=== PATIENT | female | born 1940 | race Caucasian/White ===

== ENCOUNTER → 2017-03-20 | Outpatient (CLI) | payer MEDICARE, OTHER ==
--- NOTE | 2017-03-20 12:19 | RADIOLOGY REPORT (SQ) ---
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 TECHNIQUE: Sagittal and Axial imaging includes T1, T2, STIR and gradient echo sequences. Coronal T2/ HASTE imaging. LIMITATIONS: Motion artifact FINDINGS: VISUALIZED UPPER ABDOMEN: Motion artifact on the coronal images. Multiple hepatic cysts a re present SEGMENTATION: No transitional anatomy. The lowest well-developed disc space is labeled L5-S1. ALIGNMENT: Mild retrolisthesis of L1 over L2. Mild grade 1 anterolisthesis of L3 over L4, and L4 ove r L5. VERTEBRAE: Intact. BONE MARROW: Mild marrow edema in the anterior inferior corner of L4 DISC SIGNAL: Diffuse decreased T2 weighted intervertebral disc signal. Disc space loss of height at L1-2 POSTERIOR ELEMENTS: Generally intact. No pars defect evident. HARDWARE: None in the spine. CORD AND CONUS: Normal in size and signal intensity. Conus at the L1-2 level. SOFT TISSUES: No aortic aneurysm seen. No bulky retroperitoneal adenopathy or mass. No paraspinal mas s or fluid. T11-12: Unremarkable T12-L1: Unremarkable L1-L2: Disc space loss of height with slight retrolisthesis of L1 over L2. Broad diffuse posterior d isc bulging and moderate bilateral facet and ligament hypertrophy. Borderline central canal narrowin g. Moderate right, mild left foraminal narrowing. L2-L3: Minimal diffuse posterior disc bulging, moderate bilateral facet and ligament hypertrophy. Jori rderline central canal narrowing. Mild inferior right foraminal narrowing, mild to moderate left for aminal narrowing without definite exiting L2 nerve root impingement. L3-L4: Grade 1 anterolisthesis of L3 over L4, broad diffuse posterior disc bulging and bulky bilatera l facet and ligament hypertrophy cause moderate to high-grade central canal stenosis best shown on ax ial T2 images 16-18. There is partial effacement of the CSF around the lumbar nerve roots. Mild garcía ateral inferior foraminal narrowing without exiting L3 nerve root impingement. L4-L5: Grade 1 anterolisthesis of L4 over L5, broad diffuse posterior disc bulge and bony spurring, m oderate bilateral facet and ligament hypertrophy OS moderate to high-grade central canal stenosis wit h partial effacement of the CSF around the lumbar nerve roots best shown on axial T2 image 23. There is moderate bilateral foraminal narrowing left greater than right without definite exiting L4 nerve root impingement L5-S1: Small central disc protrusion with slight inferior migration. This flattens the thecal sac be tween the takeoffs of the bilateral proximal S1 nerve roots without significant mass effect. This is best shown on axial T2 image 29. Borderline central canal narrowing. Mild bilateral foraminal narr owing without exiting L5 nerve root impingement SACRUM: Visualized upper sacrum intact. OTHER: No other significant findings. IMPRESSION: Multilevel degenerative changes as above TECHNICAL DOCUMENTATION: JOB ID: [id number] [employer] All Rights Reserved
== END ==
LOC: RAD 10:39
PROVIDERS: ATTEND Physician Assistant
DX: M54.16 Radiculopathy, lumbar region (principal); M48.061 Spinal stenosis, lumbar region without neurogenic claudication
CPT/HCPCS: 72148

== ENCOUNTER 2017-06-25 07:38 | Day surgery (SDC) | payer MEDICARE, OTHER ==
[~2017-06-25 07:38] MED LIST: CHONDR SU A NA/HYALUR INTRAOC KIT (SURGICARE) ONE; EPINEPHRINE INJ/PF 1 MG/1 ML AMPULE ONE; KETOROLAC TROMETHAMINE 0.45% 4 DROP/0.4 ML DROPERETTE OD PRN; LIDOCAINE 1% INJ-PF (10 MG/ML) 30 ML SDV ONE
[2017-06-25] MEDS: TROPICAMIDE 1% OPH SOLN 3 ML OD PRN ×3 (08:04→08:36)
[2017-06-25] MEDS: CYCLOPENTOLATE 0.2%/PHENYLEPHRINE 1% OPH SOLN 2 ML OD PRN ×3 (08:04→08:36)
[2017-06-25] MEDS: BESIFLOXACIN HCL 0.6% OPH SUSP 5 ML BOTTLE OD PRN ×4 (08:05→09:00)
[2017-06-25] MEDS: TETRACAINE HCL 0.5% OPH SOLN 2 ML OD PRN ×3 (08:06→08:46)
[2017-06-25] MEDS ORDERED: MIDAZOLAM 2 MG/2 ML INJ ONE (08:30)
--- NOTE | 2017-06-25 19:10 | [facility] OPERATIVE REPORT E ---
[facility] Operative Report NAME: YOLY LOPEZ AGE: 77Y DATE OF SURGERY: 06/25/2017 ROOM: PREOPERATIVE DIAGNOSIS: CATARACT, RIGHT EYE. POSTOPERATIVE DIAGNOSIS: CATARACT, RIGHT EYE. OPERATION: Cataract extraction with intraocular lens implant of the right eye. SURGEON: MARY PADGETT M.D. ANESTHESIA: Topical. TISSUE REMOVED OR ALTERED: PROCEDURE: After obtaining appropriate consent, the patient's right eye was prepped and draped in sterile fashion as well as the surgeon in a sterile manner and cataract surgery was started. First a paracentesis blade was used to make a small side-port incision. Viscoelastic was used to inflate the anterior chamber. Next a 2.4 mm incision was made with the paracentesis blade. A continuous capsulorrhexis incision was made using a cystotome and Utrata forceps. Following this hydrodissection was carried out to make the lens fully loose and mobile and it was rotated 90 degrees. Following this, a rqtacp-czr-qdepxbp technique was used to phacoemulsify the lens with a CDE of 6.8. The remaining cortex was removed with irrigation/aspiration. Provisc was instilled into the capsular bag to inflate the bag. A SN60WF, 21.5 diopter lens was placed. The remaining viscoelastic material was removed with irrigation/aspiration. Following this, a 10-0 nylon suture was used to close the incision and it was found to be watertight. Vigamox was instilled in the eye and a protective shield was placed over the eye. The patient returned to the postoperative recovery in stable condition. DICTATING PHYSICIAN: MARY PADGETT M.D. [id number] PHY#: [id number] ID: [id number] JOB#: [id number] ACCT: [id number] cc:MARY PADGETT M.D. >
--- NOTE | 2017-06-25 19:15 | [facility] DISCHARGE SUMMARY E ---
[facility] Discharge Summary NAME: YOLY LOPEZ AGE: 77Y ADMITTED: 06/25/2017 DISCHARGED: FINAL DIAGNOSIS: Cataract, right eye. HOSPITAL COURSE: This is a 77-year-old female who underwent cataract extraction of the right eye. She underwent surgery because she was having difficulty seeing words on the television. DISCHARGE INSTRUCTIONS: She should be on a regular diet. No bending at her waist, no heavy lifting. She should use Besivance, Ilevro and Durezol at 3:00 p.m. and 8:00 p.m. Sleep with a rigid shield. I will see her for a 1-day postoperative tomorrow. DICTATING PHYSICIAN: MARY PADGETT M.D. [id number] PHY#: [id number] ID: [id number] JOB#: [id number] ACCT: [id number] cc:MARY PADGETT M.D. >
== END 2017-06-25 09:52 | disposition home or self-care (01) ==
LOC: SC 07:38
PROVIDERS: ATTEND Internal Medicine
PROC: 08RJ3JZ Replacement of Right Lens with Synthetic Substitute, Percutaneous Approach (ICD-10-PCS; principal; 2017-06-25 09:00)
DX: H25.813 Combined forms of age-related cataract, bilateral (principal); H04.123 Dry eye syndrome of bilateral lacrimal glands; M19.90 Unspecified osteoarthritis, unspecified site; I34.1 Nonrheumatic mitral (valve) prolapse
CPT/HCPCS: 66984; V2632; J2250; J3490 ×2; A9270; J0171; 142

== ENCOUNTER 2017-07-16 10:29 | Day surgery (SDC) | payer MEDICARE, OTHER ==
[~2017-07-16 10:29] MED LIST changes: -KETOROLAC TROMETHAMINE 0.45% 4 DROP/0.4 ML DROPERETTE OD PRN; +KETOROLAC TROMETHAMINE 0.45% 4 DROP/0.4 ML DROPERETTE OS PRN
[2017-07-16] MEDS: TROPICAMIDE 1% OPH SOLN 3 ML OS PRN ×3 (10:49→11:07)
[2017-07-16] MEDS: CYCLOPENTOLATE 0.2%/PHENYLEPHRINE 1% OPH SOLN 2 ML OS PRN ×3 (10:49→11:07)
[2017-07-16] MEDS: TETRACAINE HCL 0.5% OPH SOLN 2 ML OS PRN ×3 (10:49→11:23)
[2017-07-16] MEDS: BESIFLOXACIN HCL 0.6% OPH SUSP 5 ML BOTTLE OS PRN ×3 (10:49→11:47)
[2017-07-16] MEDS ORDERED: ONDANSETRON HCL INJ/PF 4 MG/2 ML SDV ONE (11:06)
[2017-07-16] MEDS ORDERED: MIDAZOLAM 2 MG/2 ML INJ ONE ×2 (11:06→11:22)
[2017-07-16] MEDS ORDERED: FENTANYL CITRATE INJ/PF 100 MCG/2 ML AMPUL ONE (11:06)
--- NOTE | 2017-07-16 15:18 | [facility] OPERATIVE REPORT E ---
[facility] Operative Report NAME: YOLY LOPEZ AGE: 77Y DATE OF SURGERY: 07/16/2017 ROOM: PREOPERATIVE DIAGNOSIS: CATARACT, LEFT EYE. POSTOPERATIVE DIAGNOSIS: CATARACT, LEFT EYE. OPERATION: Cataract extraction with intraocular lens implant of the left eye. SURGEON: MARY PADGETT M.D. ANESTHESIA: Topical. TISSUE REMOVED OR ALTERED: PROCEDURE: After obtaining appropriate consent, the patient's left eye was prepped and draped in sterile fashion as well as the surgeon in a sterile manner and cataract surgery was started. First a paracentesis blade was used to make a small side-port incision. Viscoelastic was used to inflate the anterior chamber. Next a 2.4 mm incision was made with the paracentesis blade. A continuous capsulorrhexis incision was made using a cystotome and Utrata forceps. Following this hydrodissection was carried out to make the lens fully loose and mobile and it was rotated 90 degrees. Following this, a pltjps-qkd-dkiichq technique was used to phacoemulsify the lens with a CDE of 7.87. The remaining cortex was removed with irrigation/aspiration. Provisc was instilled into the capsular bag to inflate the bag. A SN60WF, 20.5 diopter lens was placed. The remaining viscoelastic material was removed with irrigation/aspiration. Following this, a 10-0 nylon suture was used to close the incision and it was found to be watertight. Vigamox was instilled in the eye and a protective shield was placed over the eye. The patient returned to the postoperative recovery in stable condition. DICTATING PHYSICIAN: MARY PADGETT M.D. [id number] PHY#: [id number] ID: [id number] JOB#: [id number] ACCT: [id number] cc:MARY PADGETT M.D. >
--- NOTE | 2017-07-16 15:19 | [facility] DISCHARGE SUMMARY E ---
[facility] Discharge Summary NAME: YOLY LOPEZ AGE: 77Y ADMITTED: 07/16/2017 DISCHARGED: 07/16/2017 FINAL DIAGNOSIS: Cataract, left eye. HOSPITAL COURSE: This is a 77-year-old female who underwent cataract extraction of the left eye. She underwent surgery because she was having trouble seeing words on the television. She should be on a regular diet. No bending at her waist, no heavy lifting. She should use Besivance, Ilevro and Durezol at 3:00 p.m. and 8:00 p.m. Sleep with a rigid shield. I will see her for a 1-day postoperative tomorrow. DICTATING PHYSICIAN: MARY PADGETT M.D. [id number] PHY#: [id number] ID: [id number] JOB#: [id number] ACCT: [id number] cc:MARY PADGETT M.D. >
== END 2017-07-16 12:33 | disposition home or self-care (01) ==
LOC: SC 10:29
PROVIDERS: ATTEND Internal Medicine
DX: H25.812 Combined forms of age-related cataract, left eye (principal); Z96.1 Presence of intraocular lens
CPT/HCPCS: 66984; V2632; J2250; J3490 ×2; A9270; J0171; J2405; 142; J3010